=== PATIENT | male | born 1960 | race Caucasian/White ===

== ENCOUNTER 2016-08-07 10:11 | Inpatient (IN) | payer MEDICAID ==
[~2016-08-07] VITALS: Ht 175.3 cm; Wt 81.7 kg
[~2016-08-07 10:11] MED LIST: CLON.5 PO; GABA-529 PO
[2016-08-07] MEDS ORDERED: VECURONIUM BROMIDE 10 MG/VIAL IVP ONE ×2 (10:30→12:00)
[2016-08-07] MEDS ORDERED: SODIUM CHLORIDE 0.9% 1,000 ML IV ONE ×3 (10:30→13:15)
[2016-08-07] MEDS ORDERED: NALOXONE HCL 1 MG/ML 2 ML SYG IVP ONE ×2 (10:30)
[2016-08-07] MEDS ORDERED: ETOMIDATE 2 MG/ML 10 ML VIAL IVP ONE ×2 (10:30→12:00)
[2016-08-07 10:46] LABS: HEMATOCRIT 37.3 % (41-53); HEMOGLOBIN 12.1 g/dL (13.5-17.5); MEAN CORPUSCULAR HEMOGLOBIN 29.7 pg (26.0-34.0); MEAN CORPUSCULAR HGB CONC 32.4 G/dL (31.0-37.0); MEAN CORPUSCULAR VOLUME 92 fL (80-100); PLATELET COUNT (AUTO) 193 K/uL (150-450); RED BLOOD CELL COUNT(AUTO) 4.07 MIL/uL (4.50-5.90); RED CELL DISTRIBUTION WIDTH 16.1 % (11.5-14.5); WHITE BLOOD COUNT (AUTO) 11.8 K/uL (4.5-11.0)
[2016-08-07 10:51] LABS: ALLEN TEST, BLOOD GAS Positive; TEMPERATURE, FAHRENHEIT, BG 100.7 FAHREN (96.0-98.6)
[2016-08-07 10:52] LABS: ABG BASE EXCESS -12.5 mmol/L (-2.0-3.0); ABG HCO3 14.3 mmol/L (22.0-26.0); ABG OXYHEMOGLOBIN 83.2 % (94.0-100.0); ABG PCO2 64 mmHg (35-45); ABG PH 7.063 (7.35-7.450)
[2016-08-07 10:53] LABS: ABG A-A DIFF O2 571.7 mmHg (10-20.0)
[2016-08-07 11:00] LABS: ANION GAP 19 mmol/L (8-16); CALCIUM, TOTAL 7.5 mg/dL (8.8-10.5); CARBON DIOXIDE 20 mmol/L (22-29); CHLORIDE 100 mmol/L (98-107); CREATININE 3.95 mg/dL (0.60-1.30); GLOMERULAR FILTR. RATE CALC 13 mL/min (>60); POTASSIUM 4.4 mmol/L (3.5-5.1); SODIUM SERUM 139 mmol/L (136-145); UREA NITROGEN, BLOOD 39 mg/dL (7-18)
[2016-08-07] MEDS ORDERED: VANCOMYCIN HCL 1 GM/D5% WATER 200 ML IV ONE ×2 (11:00→15:30)
[2016-08-07] MEDS ORDERED: PIPERACILLIN SODIUM/TAZOBACTAM 4.5 GM in DEXTROSE 5%-WATER 100 ML IV ONE (11:00)
[2016-08-07 11:03] LABS: APPEARANCE,URINE CLOUDY (CLEAR); GLUCOSE, URINE (UA) NEGATIVE (NEGATIVE); KETONES,URINE TRACE mg/dL (NEGATIVE); LEUKOCYTE ESTERASE ,URINE NEGATIVE (NEGATIVE); OCCULT BLOOD,URINE LARGE (NEGATIVE); PROTEIN,URINE POS 1+ (NEGATIVE)
[2016-08-07 11:05] LABS: ADD UA MICROSCOPIC YES
[2016-08-07 11:06] LABS: INR 1.6 (0.9-1.1); PROTHROMBIN TIME 16.7 SEC (9.4-11.6)
[2016-08-07 11:07] LABS: B-TYPE NATRIURETIC PEPTIDE 723 pg/mL (0-100)
[2016-08-07 11:13] LABS: ALBUMIN 2.7 g/dL (3.4-5.0); BILIRUBIN,TOTAL 0.8 mg/dL (0.1-1.0); TOTAL PROTEIN, SERUM 6.2 g/dL (6.4-8.2)
[2016-08-07 11:18] LABS: FINE GRANULAR CASTS,URINE 0-2 /LPF (None Seen); HYALINE CASTS, URINE 0-2 /LPF (None Seen)
[2016-08-07 11:24] LABS: BAND NEUTROPHILS % (MANUAL) 29 % (1-5); LYMPHOCYTES % (MANUAL) 8 % (22-44); TOTAL CELLS COUNTED 100
[2016-08-07 11:28] LABS: TROPONIN I 2.35 ng/mL (0.00-0.05)
[2016-08-07] MEDS ORDERED: SODIUM BICARBONATE [ADULT] 8.4% 50 MEQ/50 ML SYRINGE IVP ONE (11:30)
[2016-08-07 11:33] LABS: ALANINE AMINOTRANSFERASE 3699 U/L (12-78); ASPARTATE AMINOTRANSFERASE 6591 U/L (15-37)
[2016-08-07 11:49] LABS: ACETAMINOPHEN < 2 mcg/mL (10-30); CREATINE KINASE MB 43.9 ng/mL (0-5); CREATINE KINASE, TOTAL 8833 U/L (39-308)
[2016-08-07 12:40] LABS: REFLEX LACTIC ACID? YES YES
[2016-08-07] MEDS ORDERED: 0.9% SODIUM CHLORIDE 10 ML SYRINGE IVP PRN (13:00)
[2016-08-07] MEDS ORDERED: BISACODYL 10 MG RECTAL RECTAL SUPPOSITORY PR PRN (13:15)
[2016-08-07] MEDS ORDERED: MORPHINE SULFATE 4 MG/ML SYRINGE IVP PRN (13:15)
[2016-08-07] MEDS ORDERED: VANCOMYCIN HCL 1 GM/D5% WATER 200 ML IV PRN (13:45)
[2016-08-07] MEDS ORDERED: LORazepam 2 MG/ML VIAL IVP ONE (13:45)
[2016-08-07] MEDS ORDERED: VANCOMYCIN HCL 1.5 GM in DEXTROSE 5%-WATER 250 ML IV ONE (14:00)
[2016-08-07] MEDS ORDERED: SODIUM CHLORIDE 0.9% 250 ML IV ONE (15:34)
[2016-08-07] MEDS: SODIUM BICARBONATE 75 MEQ in DEXTROSE 5%-0.45% SODIUM CHL 1,000 ML IV SCH (15:36)
[2016-08-07 16:00] VITALS: BP 93/63
[2016-08-07] MEDS: PIPERACILLIN SODIUM/TAZOBACTAM 2.25 GM in DEXTROSE 5%-WATER 50 ML IV SCH (18:04)
[2016-08-07 19:16] LABS: ABG A-A DIFF O2 565.2 mmHg (10-20.0); ABG BASE EXCESS -4.2 mmol/L (-2.0-3.0); ABG HCO3 21.1 mmol/L (22.0-26.0); ABG OXYHEMOGLOBIN 96.3 % (94.0-100.0); ABG PCO2 46 mmHg (35-45); ABG PH 7.306 (7.35-7.450)
[2016-08-07 19:17] LABS: ALLEN TEST, BLOOD GAS POS
[2016-08-07 20:00] VITALS: BP 102/85
[2016-08-07 20:39] LABS: CREATININE 3.33 mg/dL (0.60-1.30); POTASSIUM 4.5 mmol/L (3.5-5.1)
[2016-08-07 21:06] LABS: LACTIC ACID 4.9 mmol/L (0.4-2.0)
[2016-08-07] MEDS ORDERED: VANCOMYCIN HCL 500 MG in DEXTROSE 5%-WATER 100 ML IV ONE (22:00)
[2016-08-07] MEDS: DOCUSATE SODIUM 100 MG CAPSULE PO SCH (22:41)
[2016-08-08] VITALS (9 sets, daily range): BP systolic 93–115; BP diastolic 61–76
[2016-08-08] MEDS: SODIUM BICARBONATE 75 MEQ in DEXTROSE 5%-0.45% SODIUM CHL 1,000 ML IV SCH (01:08)
[2016-08-08] MEDS: PIPERACILLIN SODIUM/TAZOBACTAM 2.25 GM in DEXTROSE 5%-WATER 50 ML IV SCH ×4 (01:09→17:35)
[2016-08-08] MEDS: ACETAMINOPHEN 650 MG/20.3 ML SOLUTION UDCUP NG PRN (03:48)
[2016-08-08 06:22] LABS: CALCIUM, TOTAL 6.8 mg/dL (8.8-10.5); CREATININE 2.55 mg/dL (0.60-1.30); POTASSIUM 3.9 mmol/L (3.5-5.1)
[2016-08-08 06:23] LABS: ALBUMIN 2.3 g/dL (3.4-5.0); TOTAL PROTEIN, SERUM 5.2 g/dL (6.4-8.2)
[2016-08-08 06:26] LABS: HEMATOCRIT 33.9 % (41-53); MEAN CORPUSCULAR HEMOGLOBIN 29.5 pg (26.0-34.0); MEAN CORPUSCULAR HGB CONC 32.5 G/dL (31.0-37.0); MEAN CORPUSCULAR VOLUME 91 fL (80-100); PLATELET COUNT (AUTO) 138 K/uL (150-450); RED BLOOD CELL COUNT(AUTO) 3.74 MIL/uL (4.50-5.90); RED CELL DISTRIBUTION WIDTH 16.5 % (11.5-14.5); WHITE BLOOD COUNT (AUTO) 13.3 K/uL (4.5-11.0)
[2016-08-08] MEDS ORDERED: VANCOMYCIN HCL 1.5 GM in DEXTROSE 5%-WATER 250 ML IV ONE (08:00)
[2016-08-08 08:22] LABS: BAND NEUTROPHILS % (MANUAL) 33 % (1-5); LYMPHOCYTES % (MANUAL) 7 % (22-44); TOTAL CELLS COUNTED 100
[2016-08-08] MEDS: METHADONE HCL 10 MG TABLET PO SCH (09:27)
[2016-08-08] MEDS: DOCUSATE SODIUM 100 MG CAPSULE PO SCH ×2 (09:28→21:25)
[2016-08-08] MEDS: PANTOPRAZOLE SODIUM 40 MG/VIAL IVP SCH (09:29)
[2016-08-08] MEDS ORDERED: MORPHINE SULFATE 2 MG/ML SYRINGE IVP PRN (09:30)
[2016-08-08 09:44] LABS: CREATINE KINASE MB 32.5 ng/mL (0-5)
[2016-08-08] MEDS: DEXTROSE 5%-0.45% SODIUM CHL 1,000 ML IV SCH (10:00)
[2016-08-08 10:08] LABS: ABG A-A DIFF O2 289.4 mmHg (10-20.0); ABG BASE EXCESS 0.5 mmol/L (-2.0-3.0); ABG OXYHEMOGLOBIN 96.8 % (94.0-100.0); ABG PCO2 40 mmHg (35-45); ABG PH 7.417 (7.35-7.450); TEMPERATURE, FAHRENHEIT, BG 98.6 FAHREN (96.0-98.6)
[2016-08-08 10:09] LABS: ALLEN TEST, BLOOD GAS POS
[2016-08-08] MEDS: SODIUM BICARBONATE 650 MG TABLET NG SCH ×2 (11:33→21:25)
[2016-08-08] MEDS ORDERED: PNEUMOCOCCAL VACCINE POLYVALENT 0.5 ML VIAL [PPSV23] IM ONE (12:45)
[2016-08-08] MEDS: LORazepam 2 MG/ML VIAL IVP PRN ×3 (15:03→17:36)
[2016-08-08] MEDS ORDERED: PROPOFOL 1000 MG/ISO-OSM 100 ML IV PRN (16:45)
[2016-08-08] MEDS: MORPHINE SULFATE 2 MG/ML SYRINGE IVP PRN (18:19)
[2016-08-08] MEDS: PROPOFOL 1000 MG/ISO-OSM 100 ML IV PRN ×2 (18:25→22:38)
[2016-08-08] MEDS ORDERED: 0.9% SODIUM CHLORIDE 10 ML SYRINGE IVP PRN (19:30)
[2016-08-08] MEDS ORDERED: *CLINICAL-CEFEPIME DOSING CLINICAL ONE ×2 (21:15)
[2016-08-09] VITALS: BP 98/61
[2016-08-09] MEDS ORDERED: CEFEPIME HCL 2 GM in DEXTROSE 5%-WATER 50 ML IV SCH ×2
[2016-08-09] MEDS: DEXTROSE 5%-0.45% SODIUM CHL 1,000 ML IV SCH (00:28)
[2016-08-09] MEDS: CEFEPIME HCL 1 GM in DEXTROSE 5%-WATER 50 ML IV SCH (00:48)
[2016-08-09 04:00] VITALS: BP 101/62
[2016-08-09] MEDS: PROPOFOL 1000 MG/ISO-OSM 100 ML IV PRN ×4 (04:11→21:51)
[2016-08-09 05:29] LABS: CALCIUM, TOTAL 7.1 mg/dL (8.8-10.5); CREATININE 1.67 mg/dL (0.60-1.30); MAGNESIUM 2.1 mg/dL (1.80-2.40)
[2016-08-09 08:00] VITALS: BP 96/62
[2016-08-09] MEDS ORDERED: VANCOMYCIN HCL 1.5 GM in DEXTROSE 5%-WATER 250 ML IV ONE (08:00)
[2016-08-09] MEDS: PANTOPRAZOLE SODIUM 40 MG/VIAL IVP SCH (08:42)
[2016-08-09] MEDS: DOCUSATE SODIUM 100 MG CAPSULE PO SCH ×2 (08:42→20:20)
[2016-08-09] MEDS: METHADONE HCL 10 MG TABLET PO SCH (08:46)
[2016-08-09] MEDS ORDERED: POTASSIUM CHLORIDE 10% 40 MEQ/30 ML LIQUID UDCUP NG ONE ×3 (10:00→12:00)
[2016-08-09] MEDS: SODIUM BICARBONATE 650 MG TABLET NG SCH (10:06)
[2016-08-09] MEDS ORDERED: POTASSIUM CHLORIDE 10 MEQ ER TABLET PO ONE (11:00)
[2016-08-09 12:00] VITALS: BP 103/63
[2016-08-09] MEDS: DEXTROSE 5%-0.9% SODIUM CHL 1,000 ML IV SCH (15:59)
[2016-08-09 16:00] VITALS: BP 123/98
[2016-08-09] MEDS: LORazepam 2 MG/ML VIAL IVP PRN (17:19)
[2016-08-09 18:33] LABS: APPEARANCE,URINE CLOUDY (CLEAR); GLUCOSE, URINE (UA) NEGATIVE (NEGATIVE); KETONES,URINE NEGATIVE (NEGATIVE); LEUKOCYTE ESTERASE ,URINE NEGATIVE (NEGATIVE); PROTEIN,URINE POS 1+ (NEGATIVE)
[2016-08-09 19:05] LABS: OCCULT BLOOD,URINE MODERATE (NEGATIVE)
[2016-08-09 19:06] LABS: AMORPHOUS SEDIMENT,UR Few /LPF (None Seen); FINE GRANULAR CASTS,URINE 0-2 /LPF (None Seen)
[2016-08-09 20:00] VITALS: BP 116/71
[2016-08-09] MEDS ORDERED: VANCOMYCIN HCL 1 GM/D5% WATER 200 ML IV ONE (20:00)
[2016-08-09] MEDS: POTASSIUM CHLORIDE 10% 40 MEQ/30 ML LIQUID UDCUP NG SCH ×3 (20:20→21:51)
[2016-08-10] VITALS (9 sets, daily range): BP systolic 111–150; BP diastolic 63–90
[2016-08-10] MEDS: DEXTROSE 5%-0.9% SODIUM CHL 1,000 ML IV SCH (00:20)
[2016-08-10] MEDS: CEFEPIME HCL 1 GM in DEXTROSE 5%-WATER 50 ML IV SCH ×3 (00:21→23:35)
[2016-08-10] MEDS: PROPOFOL 1000 MG/ISO-OSM 100 ML IV PRN ×4 (02:09→22:28)
[2016-08-10 05:29] LABS: CALCIUM, TOTAL 7.4 mg/dL (8.8-10.5); CREATININE 1.35 mg/dL (0.60-1.30); POTASSIUM 3.5 mmol/L (3.5-5.1)
[2016-08-10 07:22] LABS: HEMATOCRIT 31.1 % (41-53); HEMOGLOBIN 10.3 g/dL (13.5-17.5); MEAN CORPUSCULAR HEMOGLOBIN 30.2 pg (26.0-34.0); MEAN CORPUSCULAR HGB CONC 33.2 G/dL (31.0-37.0); MEAN CORPUSCULAR VOLUME 91 fL (80-100); PLATELET COUNT (AUTO) 101 K/uL (150-450); RED BLOOD CELL COUNT(AUTO) 3.42 MIL/uL (4.50-5.90); RED CELL DISTRIBUTION WIDTH 16.9 % (11.5-14.5); WHITE BLOOD COUNT (AUTO) 12.1 K/uL (4.5-11.0)
[2016-08-10] MEDS: DOCUSATE SODIUM 100 MG CAPSULE PO SCH ×2 (08:13→19:31)
[2016-08-10] MEDS: VANCOMYCIN HCL 1.5 GM in DEXTROSE 5%-WATER 250 ML IV SCH ×2 (08:13→19:35)
[2016-08-10] MEDS: PANTOPRAZOLE SODIUM 40 MG/VIAL IVP SCH (08:13)
[2016-08-10] MEDS: METHADONE HCL 10 MG TABLET PO SCH (08:14)
[2016-08-10 08:56] LABS: BAND NEUTROPHILS % (MANUAL) 35 % (1-5); LYMPHOCYTES % (MANUAL) 7 % (22-44); TOTAL CELLS COUNTED 100
[2016-08-10] MEDS ORDERED: SODIUM CHLORIDE 0.9% 250 ML IV ONE (09:53)
[2016-08-10] MEDS ORDERED: POTASSIUM CHLORIDE 10% 40 MEQ/30 ML LIQUID UDCUP NG ONE (10:00)
[2016-08-10 14:25] LABS: CREATININE, URINE (mALB) 121.6 mg/dL (Not Estab.)
[2016-08-10] MEDS: ACETAMINOPHEN 650 MG/20.3 ML SOLUTION UDCUP NG PRN (15:51)
[2016-08-10] MEDS: MORPHINE SULFATE 2 MG/ML SYRINGE IVP PRN (16:51)
[2016-08-11] VITALS (7 sets, daily range): BP systolic 92–129; BP diastolic 56–83
[2016-08-11] MEDS: PROPOFOL 1000 MG/ISO-OSM 100 ML IV PRN ×4 (04:06→21:38)
[2016-08-11 05:15] LABS: BASOPHILS # (AUTO) 0.04 K/uL (0.00-0.20); BASOPHILS % (AUTO) 0.4 % (0.0-2.0); EOSINOPHILS # (AUTO) 0.16 K/uL (0.00-0.70); EOSINOPHILS % (AUTO) 1.49 % (1.0-6.0); HEMATOCRIT 32.9 % (41-53); LYMPHOCYTES % (AUTO) 9.2 % (22.0-44.0); MEAN CORPUSCULAR HEMOGLOBIN 30.1 pg (26.0-34.0); MEAN CORPUSCULAR HGB CONC 33.4 G/dL (31.0-37.0); MEAN CORPUSCULAR VOLUME 90 fL (80-100); MONOCYTES % (AUTO) 9.1 % (2.0-9.0); NEUTROPHILS # (AUTO) 8.6 K/uL (1.8-7.7); NEUTROPHILS % (AUTO) 79.9 % (40.0-70.0); PLATELET COUNT (AUTO) 101 K/uL (150-450); RED BLOOD CELL COUNT(AUTO) 3.66 MIL/uL (4.50-5.90); RED CELL DISTRIBUTION WIDTH 17.5 % (11.5-14.5); WHITE BLOOD COUNT (AUTO) 10.8 K/uL (4.5-11.0)
[2016-08-11 05:54] LABS: ANION GAP 6 mmol/L (8-16); CALCIUM, TOTAL 7.7 mg/dL (8.8-10.5); CARBON DIOXIDE 30 mmol/L (22-29); CHLORIDE 109 mmol/L (98-107); CREATINE KINASE MB 0.9 ng/mL (0-5); CREATINE KINASE, TOTAL 919 U/L (39-308); GLOMERULAR FILTR. RATE CALC 58 mL/min (>60); PHOSPHORUS 2.5 mg/dL (2.5-4.9); POTASSIUM 3.6 mmol/L (3.5-5.1); SODIUM SERUM 145 mmol/L (136-145); UREA NITROGEN, BLOOD 21 mg/dL (7-18)
[2016-08-11 06:07] LABS: RBC MORPHOLOGY COMMENT ABNORMAL RBC MORPH
[2016-08-11] MEDS: PANTOPRAZOLE SODIUM 40 MG/VIAL IVP SCH (08:19)
[2016-08-11] MEDS: DOCUSATE SODIUM 100 MG CAPSULE PO SCH ×3 (08:19→21:36)
[2016-08-11] MEDS: VANCOMYCIN HCL 1.5 GM in DEXTROSE 5%-WATER 250 ML IV SCH ×2 (08:19→21:37)
[2016-08-11] MEDS: METHADONE HCL 10 MG TABLET PO SCH (08:19)
[2016-08-11] MEDS ORDERED: FUROSEMIDE 20 MG/2 ML VIAL IVP ONE (10:15)
[2016-08-11] MEDS ORDERED: POTASSIUM CHLORIDE 10% 40 MEQ/30 ML LIQUID UDCUP NG ONE (11:15)
[2016-08-11] MEDS: CEFEPIME HCL 1 GM in DEXTROSE 5%-WATER 50 ML IV SCH (11:26)
[2016-08-11] MEDS ORDERED: SODIUM CHLORIDE 0.9% 250 ML IV ONE (12:38)
[2016-08-12] VITALS: BP 107/59
[2016-08-12] MEDS: CEFEPIME HCL 1 GM in DEXTROSE 5%-WATER 50 ML IV SCH ×2 (00:07→12:23)
[2016-08-12] MEDS: PROPOFOL 1000 MG/ISO-OSM 100 ML IV PRN ×3 (03:17→20:28)
[2016-08-12 04:00] VITALS: BP 143/80
[2016-08-12 05:48] LABS: BASOPHILS % (AUTO) 0.3 % (0.0-2.0); EOSINOPHILS % (AUTO) 1.9 % (1.0-6.0); HEMATOCRIT 35.3 % (41-53); HEMOGLOBIN 11.3 g/dL (13.5-17.5); LYMPHOCYTES # (AUTO) 1.2 K/uL (1.0-4.8); LYMPHOCYTES % (AUTO) 13.1 % (22.0-44.0); MEAN CORPUSCULAR HEMOGLOBIN 29.1 pg (26.0-34.0); MEAN CORPUSCULAR VOLUME 91 fL (80-100); MONOCYTES % (AUTO) 10.4 % (2.0-9.0); NEUTROPHILS # (AUTO) 6.8 K/uL (1.8-7.7); NEUTROPHILS % (AUTO) 74.3 % (40.0-70.0); PLATELET COUNT (AUTO) 142 K/uL (150-450); RED BLOOD CELL COUNT(AUTO) 3.89 MIL/uL (4.50-5.90); RED CELL DISTRIBUTION WIDTH 17.8 % (11.5-14.5); WHITE BLOOD COUNT (AUTO) 9.2 K/uL (4.5-11.0)
[2016-08-12 06:14] LABS: ANION GAP 6 mmol/L (8-16); CALCIUM, TOTAL 7.5 mg/dL (8.8-10.5); CARBON DIOXIDE 31 mmol/L (22-29); CHLORIDE 108 mmol/L (98-107); CREATINE KINASE, TOTAL 417 U/L (39-308); CREATININE 1.36 mg/dL (0.60-1.30); GLOMERULAR FILTR. RATE CALC 55 mL/min (>60); PHOSPHORUS 3.6 mg/dL (2.5-4.9); POTASSIUM 3.2 mmol/L (3.5-5.1); SODIUM SERUM 145 mmol/L (136-145); UREA NITROGEN, BLOOD 20 mg/dL (7-18)
[2016-08-12 07:19] LABS: CREATINE KINASE MB < 0.5 ng/mL (0-5)
[2016-08-12 08:00] VITALS: BP 121/66
[2016-08-12] MEDS: VANCOMYCIN HCL 1.5 GM in DEXTROSE 5%-WATER 250 ML IV SCH (08:09)
[2016-08-12] MEDS: PANTOPRAZOLE SODIUM 40 MG/VIAL IVP SCH (09:55)
[2016-08-12] MEDS: METHADONE HCL 10 MG TABLET PO SCH (09:55)
[2016-08-12] MEDS: DOCUSATE SODIUM 100 MG CAPSULE PO SCH ×2 (09:55→20:27)
[2016-08-12 10:08] LABS: RBC MORPHOLOGY COMMENT ABNORMAL RBC MORPH
[2016-08-12] MEDS ORDERED: FUROSEMIDE 20 MG/2 ML VIAL IVP ONE (11:00)
[2016-08-12] MEDS ORDERED: POTASSIUM CHLORIDE 10% 40 MEQ/30 ML LIQUID UDCUP NG ONE ×2 (11:00)
[2016-08-12 12:00] VITALS: BP 121/66
[2016-08-12 13:30] LABS: ABG A-A DIFF O2 233.1 mmHg (10-20.0); ABG BASE EXCESS 7.6 mmol/L (-2.0-3.0); ABG HCO3 30.7 mmol/L (22.0-26.0); ABG OXYHEMOGLOBIN 94.1 % (94.0-100.0); ABG PCO2 43 mmHg (35-45); ABG PH 7.482 (7.35-7.450); ALLEN TEST, BLOOD GAS Positive; TEMPERATURE, FAHRENHEIT, BG 98.6 FAHREN (96.0-98.6)
[2016-08-12 16:00] VITALS: BP 98/49
[2016-08-12 20:00] VITALS: BP 94/51
[2016-08-12] MEDS ORDERED: SODIUM CHLORIDE 0.9% 250 ML IV ONE (20:23)
[2016-08-12] MEDS: VANCOMYCIN HCL 1.25 GM in DEXTROSE 5%-WATER 250 ML IV SCH (20:27)
[2016-08-13] VITALS (10 sets, daily range): BP systolic 108–146; BP diastolic 57–84
[2016-08-13] MEDS: CEFEPIME HCL 1 GM in DEXTROSE 5%-WATER 50 ML IV SCH ×3 (00:42→23:21)
[2016-08-13] MEDS: PROPOFOL 1000 MG/ISO-OSM 100 ML IV PRN (03:54)
[2016-08-13 05:26] LABS: CALCIUM, TOTAL 7.6 mg/dL (8.8-10.5); CREATININE 1.35 mg/dL (0.60-1.30); POTASSIUM 3.2 mmol/L (3.5-5.1)
[2016-08-13] MEDS: VANCOMYCIN HCL 1.25 GM in DEXTROSE 5%-WATER 250 ML IV SCH (09:08)
[2016-08-13] MEDS: PANTOPRAZOLE SODIUM 40 MG/VIAL IVP SCH (09:08)
[2016-08-13] MEDS: MORPHINE SULFATE 2 MG/ML SYRINGE IVP PRN ×3 (09:09→18:15)
[2016-08-13] MEDS: METHADONE HCL 10 MG TABLET PO SCH (09:09)
[2016-08-13] MEDS: DOCUSATE SODIUM 100 MG CAPSULE PO SCH ×2 (09:09→21:03)
[2016-08-13] MEDS ORDERED: POTASSIUM CHLORIDE 10% 40 MEQ/30 ML LIQUID UDCUP PO ONE (10:00)
[2016-08-13 12:15] LABS: ABG BASE EXCESS 7.4 mmol/L (-2.0-3.0); ABG HCO3 30.5 mmol/L (22.0-26.0); ABG OXYHEMOGLOBIN 96.6 % (94.0-100.0); ABG PCO2 43 mmHg (35-45); ABG PH 7.475 (7.35-7.450); TEMPERATURE, FAHRENHEIT, BG 98.3 FAHREN (96.0-98.6)
[2016-08-13 12:16] LABS: ALLEN TEST, BLOOD GAS Positive
[2016-08-14] VITALS (7 sets, daily range): BP systolic 115–147; BP diastolic 66–82
[2016-08-14 05:44] LABS: ANION GAP 11 mmol/L (8-16); CALCIUM, TOTAL 8.4 mg/dL (8.8-10.5); CARBON DIOXIDE 28 mmol/L (22-29); CHLORIDE 104 mmol/L (98-107); CREATININE 1.24 mg/dL (0.60-1.30); GLOMERULAR FILTR. RATE CALC > 60 mL/min (>60); POTASSIUM 3.8 mmol/L (3.5-5.1); SODIUM SERUM 143 mmol/L (136-145); UREA NITROGEN, BLOOD 19 mg/dL (7-18)
[2016-08-14] MEDS ORDERED: VANCOMYCIN HCL 1.25 GM in DEXTROSE 5%-WATER 250 ML IV SCH (08:00)
[2016-08-14] MEDS: DOCUSATE SODIUM 100 MG CAPSULE PO SCH ×2 (08:12→21:10)
[2016-08-14] MEDS: METHADONE HCL 10 MG TABLET PO SCH (08:12)
[2016-08-14] MEDS: PANTOPRAZOLE SODIUM 40 MG/VIAL IVP SCH (08:13)
[2016-08-14] MEDS: MORPHINE SULFATE 2 MG/ML SYRINGE IVP PRN (10:25)
[2016-08-14] MEDS: CEFEPIME HCL 1 GM in DEXTROSE 5%-WATER 50 ML IV SCH ×2 (12:05→23:54)
[2016-08-14] MEDS ORDERED: SODIUM CHLORIDE 0.9% 250 ML IV ONE (20:28)
[2016-08-14] MEDS: VANCOMYCIN HCL 1 GM/D5% WATER 200 ML IV SCH (21:10)
[2016-08-15] VITALS (7 sets, daily range): BP systolic 116–128; BP diastolic 68–87
[2016-08-15 06:43] LABS: BASOPHILS % (AUTO) 0.2 % (0.0-2.0); EOSINOPHILS % (AUTO) 1.8 % (1.0-6.0); HEMATOCRIT 32.5 % (41-53); HEMOGLOBIN 10.6 g/dL (13.5-17.5); LYMPHOCYTES % (AUTO) 14.4 % (22.0-44.0); MEAN CORPUSCULAR HEMOGLOBIN 29.4 pg (26.0-34.0); MEAN CORPUSCULAR HGB CONC 32.5 G/dL (31.0-37.0); MEAN CORPUSCULAR VOLUME 90 fL (80-100); MONOCYTES # (AUTO) 1.2 K/uL (0.1-1.0); MONOCYTES % (AUTO) 8.9 % (2.0-9.0); NEUTROPHILS # (AUTO) 10.4 K/uL (1.8-7.7); NEUTROPHILS % (AUTO) 74.7 % (40.0-70.0); PLATELET COUNT (AUTO) 264 K/uL (150-450); RED BLOOD CELL COUNT(AUTO) 3.59 MIL/uL (4.50-5.90); RED CELL DISTRIBUTION WIDTH 16.2 % (11.5-14.5); WHITE BLOOD COUNT (AUTO) 13.9 K/uL (4.5-11.0)
[2016-08-15 07:14] LABS: ANION GAP 9 mmol/L (8-16); CALCIUM, TOTAL 7.9 mg/dL (8.8-10.5); CARBON DIOXIDE 27 mmol/L (22-29); CHLORIDE 101 mmol/L (98-107); CREATININE 1.11 mg/dL (0.60-1.30); GLOMERULAR FILTR. RATE CALC > 60 mL/min (>60); PHOSPHORUS 3.2 mg/dL (2.5-4.9); SODIUM SERUM 137 mmol/L (136-145); UREA NITROGEN, BLOOD 16 mg/dL (7-18)
[2016-08-15 07:18] LABS: POTASSIUM 2.9 mmol/L (3.5-5.1)
[2016-08-15] MEDS: VANCOMYCIN HCL 1 GM/D5% WATER 200 ML IV SCH (08:13)
[2016-08-15] MEDS: PANTOPRAZOLE SODIUM 40 MG/VIAL IVP SCH (08:13)
[2016-08-15] MEDS: DOCUSATE SODIUM 100 MG CAPSULE PO SCH ×2 (08:13→21:09)
[2016-08-15] MEDS: METHADONE HCL 10 MG TABLET PO SCH (08:14)
[2016-08-15] MEDS: MORPHINE SULFATE 2 MG/ML SYRINGE IVP PRN ×3 (08:30→22:44)
[2016-08-15] MEDS ORDERED: POTASSIUM CHLORIDE 20 MEQ ER TABLET PO ONE (11:00)
[2016-08-15] MEDS: CEFEPIME HCL 1 GM in DEXTROSE 5%-WATER 50 ML IV SCH (12:17)
[2016-08-15] MEDS: DOXYCYCLINE 100 MG CAPSULE PO SCH ×2 (16:01→21:09)
[2016-08-16 04:48] VITALS: BP 136/78
[2016-08-16] MEDS: MORPHINE SULFATE 2 MG/ML SYRINGE IVP PRN ×3 (05:35→21:15)
[2016-08-16 07:02] LABS: BASOPHILS % (AUTO) 0.3 % (0.0-2.0); EOSINOPHILS % (AUTO) 1.8 % (1.0-6.0); HEMATOCRIT 33.9 % (41-53); HEMOGLOBIN 10.9 g/dL (13.5-17.5); LYMPHOCYTES # (AUTO) 1.8 K/uL (1.0-4.8); LYMPHOCYTES % (AUTO) 12.2 % (22.0-44.0); MEAN CORPUSCULAR HEMOGLOBIN 28.9 pg (26.0-34.0); MEAN CORPUSCULAR HGB CONC 32.2 G/dL (31.0-37.0); MEAN CORPUSCULAR VOLUME 90 fL (80-100); MONOCYTES # (AUTO) 1.3 K/uL (0.1-1.0); MONOCYTES % (AUTO) 8.9 % (2.0-9.0); NEUTROPHILS # (AUTO) 11.4 K/uL (1.8-7.7); NEUTROPHILS % (AUTO) 76.8 % (40.0-70.0); PLATELET COUNT (AUTO) 345 K/uL (150-450); RED BLOOD CELL COUNT(AUTO) 3.78 MIL/uL (4.50-5.90); RED CELL DISTRIBUTION WIDTH 16.7 % (11.5-14.5); WHITE BLOOD COUNT (AUTO) 14.8 K/uL (4.5-11.0)
[2016-08-16 07:17] VITALS: BP 134/86
[2016-08-16 07:34] LABS: CREATINE KINASE, TOTAL 250 U/L (39-308); PHOSPHORUS 3.8 mg/dL (2.5-4.9)
[2016-08-16 07:38] LABS: CREATINE KINASE MB < 0.5 ng/mL (0-5)
[2016-08-16] MEDS: PANTOPRAZOLE SODIUM 40 MG/VIAL IVP SCH (09:14)
[2016-08-16] MEDS: METHADONE HCL 10 MG TABLET PO SCH (09:15)
[2016-08-16] MEDS: DOCUSATE SODIUM 100 MG CAPSULE PO SCH ×2 (09:15→21:14)
[2016-08-16] MEDS: DOXYCYCLINE 100 MG CAPSULE PO SCH ×2 (09:15→21:14)
[2016-08-16] MEDS ORDERED: POTASSIUM CHLORIDE 10% 40 MEQ/30 ML LIQUID UDCUP PO ONE (10:30)
[2016-08-16 10:49] LABS: ANION GAP 14 mmol/L (8-16); CALCIUM, TOTAL 8.1 mg/dL (8.8-10.5); CARBON DIOXIDE 23 mmol/L (22-29); CHLORIDE 99 mmol/L (98-107); CREATININE 1.03 mg/dL (0.60-1.30); GLOMERULAR FILTR. RATE CALC > 60 mL/min (>60); POTASSIUM 3.4 mmol/L (3.5-5.1); SODIUM SERUM 136 mmol/L (136-145); UREA NITROGEN, BLOOD 12 mg/dL (7-18)
[2016-08-16 11:42] VITALS: BP 136/89
[2016-08-16 16:02] VITALS: BP 141/86
[2016-08-16 19:50] VITALS: BP 137/87
[2016-08-16 23:15] VITALS: BP 136/82
[2016-08-17] MEDS: MORPHINE SULFATE 2 MG/ML SYRINGE IVP PRN ×2 (03:40→08:07)
[2016-08-17 04:43] VITALS: BP 137/86
[2016-08-17 07:30] VITALS: BP 131/74
[2016-08-17 07:40] LABS: INR 1.1 (0.9-1.1); PROTHROMBIN TIME 11.6 SEC (9.4-11.6)
[2016-08-17 07:56] LABS: ANION GAP 10 mmol/L (8-16); CALCIUM, TOTAL 8.1 mg/dL (8.8-10.5); CARBON DIOXIDE 25 mmol/L (22-29); CHLORIDE 99 mmol/L (98-107); CREATININE 0.99 mg/dL (0.60-1.30); GLOMERULAR FILTR. RATE CALC > 60 mL/min (>60); POTASSIUM 3.8 mmol/L (3.5-5.1); SODIUM SERUM 134 mmol/L (136-145); UREA NITROGEN, BLOOD 12 mg/dL (7-18)
[2016-08-17] MEDS: PANTOPRAZOLE SODIUM 40 MG/VIAL IVP SCH (08:04)
[2016-08-17] MEDS: DOXYCYCLINE 100 MG CAPSULE PO SCH (08:07)
[2016-08-17] MEDS: METHADONE HCL 10 MG TABLET PO SCH (08:08)
[2016-08-17] MEDS: DOCUSATE SODIUM 100 MG CAPSULE PO SCH (08:08)
[2016-08-17 11:29] VITALS: BP 120/72
[2016-08-17 16:12] VITALS: BP 128/74
[2016-08-17] MEDS ORDERED: DOXY150T PO (16:14)
== END 2016-08-17 17:55 | disposition home health service (06) | DRG 720 ==
LOC: EMS 10:16 → EDBD 10:16 → ICU 13:02 → EDBD 13:02 → ICUN 08-11 20:25 → 5S 08-14 17:32
PROVIDERS: ADMIT Internal Medicine; ATTEND Internal Medicine
PROC: 5A09557 Assistance with Respiratory Ventilation, Greater than 96 Consecutive Hours, Continuous Positive Airway Pressure (ICD-10-PCS; principal; 2016-08-07)
PROC: 0BH17EZ Insertion of Endotracheal Airway into Trachea, Via Natural or Artificial Opening (ICD-10-PCS; 2016-08-07)
PROC: 3E0234Z Introduction of Serum, Toxoid and Vaccine into Muscle, Percutaneous Approach (ICD-10-PCS; 2016-08-08)
DX: A41.9 Sepsis, unspecified organism (principal); N17.0 Acute kidney failure with tubular necrosis; K72.00 Acute and subacute hepatic failure without coma; R57.9 Shock, unspecified; J96.01 Acute respiratory failure with hypoxia; J96.02 Acute respiratory failure with hypercapnia; M62.82 Rhabdomyolysis; E83.51 Hypocalcemia; E43 Unspecified severe protein-calorie malnutrition; J15.212 Pneumonia due to Methicillin resistant Staphylococcus aureus; G93.40 Encephalopathy, unspecified; J18.9 Pneumonia, unspecified organism; G93.41 Metabolic encephalopathy; Z86.73 Personal history of transient ischemic attack (TIA), and cerebral infarction without residual deficits; D64.9 Anemia, unspecified; E87.6 Hypokalemia; E87.4 Mixed disorder of acid-base balance; E87.0 Hyperosmolality and hypernatremia; F19.10 Other psychoactive substance abuse, uncomplicated; I27.2 Other secondary pulmonary hypertension; Z59.0 Homelessness; Z23 Encounter for immunization; Z88.0 Allergy status to penicillin; Z68.26 Body mass index [BMI] 26.0-26.9, adult
CPT/HCPCS: 31500; 51702; 70450; 71250; 76770; 82043; 82271; 82570; 82805; 83605; 83735; 83874; 84100; 84132; 84156; 84300; 87040; 87070; 87081; 87086; 87147; 87205; 90471; 92526; 92610; 93005; 93306; 94002; 94003; 96361; 96365; 96366; 96368; 96375; 96376; 97116; 97162; 97530; 99291; C9113; G0480; G0481; J0692; J1940; J2060; J2270; J2543; J2704; J3370; J3490; J7042; J7050; J7060

== ENCOUNTER 2018-12-29 09:48 | Emergency (ER) | payer MEDICAID, OTHER ==
[~2018-12-29] VITALS: Ht 175.3 cm; Wt 65.0 kg
[~2018-12-29 09:48] MED LIST changes: +DOXY150T5 PO
[2018-12-29] MEDS ORDERED: GABA-533 PO (10:04)
[2018-12-29] MEDS ORDERED: SIMV-259 PO (10:04)
[2018-12-29] MEDS ORDERED: CLON2 PO (10:04)
[2018-12-29] MEDS ORDERED: IBUPROFEN 800 MG TABLET PO ONE (10:30)
[2018-12-29 13:12] VITALS: BP 122/72
== END 2018-12-29 13:17 | disposition home or self-care (01) ==
LOC: EMS 09:50
DX: S93.401A Sprain of unspecified ligament of right ankle, initial encounter (principal); F17.210 Nicotine dependence, cigarettes, uncomplicated; E78.00 Pure hypercholesterolemia, unspecified; Z88.0 Allergy status to penicillin; Z79.899 Other long term (current) drug therapy; Z59.0 Homelessness; X50.1XXA Overexertion from prolonged static or awkward postures, initial encounter; Y93.01 Activity, walking, marching and hiking; Y92.89 Other specified places as the place of occurrence of the external cause; Y99.8 Other external cause status
CPT/HCPCS: 99406